=== PATIENT | male | born 1940 | race African-American/Black ===

== ENCOUNTER 2019-09-11 16:02 | Inpatient (IN) | payer MEDICARE ==
[~2019-09-11] VITALS: Ht 167.6 cm; Wt 141.5 kg
[2019-09-11 16:03] VITALS: BP 143/99
[2019-09-11] MEDS ORDERED: METFORMIN HCL500 M3 PO (16:18)
[2019-09-11 16:37] LABS: ABSOLUTE LYMPHOCYTES 1.1 thou/uL (0.8-5.3); ABSOLUTE MONOCYTES 0.6 thou/uL (0.0-1.2); ABSOLUTE NEUTROPHILS 4.6 thou/uL (1.6-8.1); BASOPHILS 0.5 %; EOSINOPHILS 0.5 %; HEMATOCRIT 38.2 % (42.0-52.0); HEMOGLOBIN 12.7 gm/dL (14.0-18.0); LYMPHOCYTES 17.1 %; MCH 29.2 pg (26.0-34.0); MCHC 33.2 g/dL (28.0-37.0); MCV 87.9 fL (80.0-100.0); MONOCYTES 9.6 %; MPV 10.4 fl. (7.2-11.1); NUCLEATED RBCS 0 /100WBC; PLATELET COUNT* 151 thou/uL (150-400); POLYS 72.3 %; RBC 4.35 mil/uL (4.50-6.00); RDW-CV 15.6 % (10.5-14.5); WBC 6.4 thou/uL (4.0-11.0)
[2019-09-11 16:48] LABS: CALCIUM 8.4 mg/dL (8.5-10.1); CREATININE 1.8 mg/dL (0.6-1.3)
[2019-09-11 16:49] LABS: APTT 28.9 Seconds (25.0-31.3); INR 1.2; PROTIME 12.5 Seconds (9.20-11.50)
[2019-09-11 16:51] LABS: POTASSIUM 2.7 mmol/L (3.5-5.1)
[2019-09-11 16:59] LABS: ALBUMIN 3.4 g/dL (3.4-5.0); TOTAL BILIRUBIN 0.8 mg/dL (<0.1-1.0); TOTAL PROTEIN 7.2 g/dL (6.4-8.2)
[2019-09-11 18:16] VITALS: BP 159/90
[2019-09-11 18:42] VITALS: BP 140/98
[2019-09-11 19:25] VITALS: BP 129/89
[2019-09-12] VITALS (12 sets, daily range): BP systolic 115–172; BP diastolic 65–102
[2019-09-12 04:19] LABS: HEMATOCRIT 38.3 % (42.0-52.0); HEMOGLOBIN 12.7 gm/dL (14.0-18.0); MCH 29.1 pg (26.0-34.0); MCHC 33.1 g/dL (28.0-37.0); MCV 87.9 fL (80.0-100.0); MPV 10.2 fl. (7.2-11.1); NUCLEATED RBCS 0 /100WBC; PLATELET COUNT* 142 thou/uL (150-400); RBC 4.36 mil/uL (4.50-6.00); RDW-CV 16.3 % (10.5-14.5); WBC 5.2 thou/uL (4.0-11.0)
[2019-09-12 04:49] LABS: CALCIUM 8.9 mg/dL (8.5-10.1); CREATININE 1.6 mg/dL (0.6-1.3); POTASSIUM 3.4 mmol/L (3.5-5.1); TROPONIN-I LEVEL 0.12 ng/mL (<0.06)
[2019-09-12 05:59] LABS: ABSOLUTE LYMPHOCYTES 0.3 thou/uL (0.8-5.3); ABSOLUTE MONOCYTES 0.1 thou/uL (0.0-1.2); ABSOLUTE NEUTROPHILS 4.9 thou/uL (1.6-8.1); HYPOCHROMASIA 1+; PLATELET ESTIMATE DECREASED; TARGET CELLS Occasional
[2019-09-12 06:00] LABS: ANISOCYTOSIS 1+; POIKILOCYTOSIS 1+
--- NOTE | 2019-09-12 08:29 | EKG ---
[place] [address] ELECTROCARDIOGRAM REPORT Name: GEORGIE DIEGOQUASH Zhou Room: [address] IN ..#: [id number] Admission: 09/11/19 Attend Phys: David Hale, Discharge: Date of : 40 Date of Service: 09/11/19 1610 Report #: [id number] THIS REPORT FOR: //name// [facility] ED Test Date: 2019-09-11 Test Time: 16:10:04 Pat Name: MARQUIS DIEGO Department: Room: [facility] Gender: M College Director: OLIVE : 1940 Requested By: Trey Armendariz Order Number: [id number] MD: Niels Cazares Measurements Intervals [place] Rate: 92 P: PA: QRS: 55 QRSD: 192 T: -29 QT: 434 QTc: 537 Interpretive Statements Atrial fibrillation Right bundle branch block No previous ECG available for comparison Electronically Signed On 09-12-2019 8:28:08 CDT by Niels Cazares [email or web address] <ELECTRONICALLY SIGNED> By: Niels Cazares MD, [facility] 09/12/19 0828 1610 1610 Niels Cazares MD, [facility] /EPI
[2019-09-12] MEDS ORDERED: ATENOLOL 50MG T50 MG PO (09:13)
[2019-09-12] MEDS ORDERED: PLAVIX 75 MG TA75 MG PO (09:15)
[2019-09-12] MEDS ORDERED: LISINOPRIL-HCT1 EACH PO (09:16)
[2019-09-12] MEDS ORDERED: SIMVASTATIN40 MG PO (09:17)
--- NOTE | 2019-09-12 12:55 | 2DMMODE ---
[place] [address] 2 D/M-MODE ECHOCARDIOGRAM Name: GEORGIE DIEGONANCY Zhou Room: [address] IN [facility]#: [id number] Admission: 09/11/19 Attend Phys: David Hale, Discharge: Date of : 40 Date of Service: 09/12/19 1253 Report #: [id number] THIS REPORT FOR: cc: FAM - No family physician/PCP FAM - No family physician/PCP Jamie Curry MD [facility] ~ APPROVED REPORT Study performed: 09/12/2019 10:17:48 EXAM: Comprehensive 2D, Doppler, and color-flow Echocardiogram Patient Location: In-Patient Room #: [facility] [place][note 2] Status: routine BSA: 2.16 HR: 90 bpm BP: 144/90 mmHg Rhythm: Atrial Fibrillation Other Information Study Quality: Fair Indications Congestive Heart Failure 2D Dimensions IVSd: 15.23 (7-11mm) LVOT Diam: 23.27 (18-24mm) LVDd: 61.24 mm PWd: 12.88 (7-11mm) Ascending Ao: 41.16 (22-36mm) LVDs: 39.02 (25-40mm) Aortic Root: 34.18 mm Volumes Left Atrial Volume (Systole) LA ESV Index: 44.60 mL/m2 Aortic Valve AoV Peak [place]oacano.: 1.22 m/s AO Peak Gr.: 5.92 mmHg LVOT Max P.73 mmHg AO Mean Gr.: 3.38 mmHg LVOT Mean P.36 mmHg LVOT Max V: 1.20 m/s AO V2 VTI: 20.07 cm LVOT Mean V: 0.69 m/s DOMINIC (VTI): 4.03 cm2 LVOT V1 VTI: 19.03 cm AI Long: 2.71 m/s2 [place] [address] 2 D/M-MODE ECHOCARDIOGRAM Name: MARQUIS Winnie DIEGO Room: [address] IN [facility]#: [id number] Admission: 09/11/19 Attend Phys: David Hale, Discharge: Date of : 40 Date of Service: 09/12/19 1253 Report #: [id number] AI PHT: 438.92 ms TDI Medial E' Michoacano.: 0.18 m/s Lateral E' [place]oacano.: 0.20 m/s Pulmonary Valve PV Peak Michoacano.: 1.03 m/s PV Peak Gr.: 4.24 mmHg Tricuspid Valve RAP Estimate: 5.00 mmHg TR Peak Gr.: 43.78 mmHg RVSP: 48.00 mmHg PA Pressure: 48.00 mmHg Left Ventricle The left ventricle is normal size. There is normal LV segmental wall motion. Mild concentric left ventricular hypertrophy. Left ventricular systolic function is borderline. LVEF is 45-50%. This study is not technically sufficient to allow evaluation of the LV diastolic function due to atrial fibrillation. Right Ventricle Right ventricle is dilated. The right ventricular systolic function is normal. Atria Left atrium is moderately dilated. Right atrium is dilated. Aortic Valve The aortic valve is normal in structure. Mild aortic regurgitation. There is no aortic valvular stenosis. Mitral Valve The mitral valve is normal in structure. Trace mitral regurgitation. No evidence of mitral valve stenosis. Tricuspid Valve The tricuspid valve is normal in structure. Mild tricuspid regurgitation. estimated pa pressure 55 mm Hg Pulmonic Valve The pulmonary valve is normal in structure. Mild pulmonic regurgitation. Great Vessels The aortic root is normal in size. IVC is [place] [address] 2 D/M-MODE ECHOCARDIOGRAM Name: BRANDIEMARQUIS Zhou Room: [address]#: [id number] Admission: 09/11/19 Attend Phys: David Hale, Discharge: Date of : 40 Date of Service: 09/12/19 1253 Report #: [id number] collapses >50% with inspiration. Pericardium There is no pericardial effusion. <Conclusion> Mild concentric left ventricular hypertrophy. LVEF is 45-50%. Right ventricle is dilated. Left atrium is moderately dilated. Mild aortic regurgitation. Mild tricuspid regurgitation. estimated pa pressure 55 mm Hg <ELECTRONICALLY SIGNED> By: Jamie Curry MD, [facility] 09/12/19 1253 1253 1253 Jamie Curry MD, FAC /INF
--- NOTE | 2019-09-12 13:19 | CARD ---
[address] [address] CARDIAC CATH REPORT Name: GEORGIE DIEGONANCY Zhou Room: [address] IN [facility]#: [id number] Admission: 09/11/19 Attend Phys: David Hale MD Discharge: Date of : 40 Report #: [id number] THIS REPORT FOR: //name// cc: REINALDO - No family physician/PCP REINALDO - No family physician/PCP ~ APPROVED REPORT Study performed: 09/12/2019 09:35:32 Patient Details Patient Status: In-Patient Room #: 203 The patient is a 79 year-old male Event Personnel Jamie Curry Marina Porter, Camila Walters RN Pharmacy Messenger , Reinaldo Baez RTR Monitor, Neida Fuchs RTR Scrub, Aroldo Eric RN Pharmacy Messenger, Kacie Olmedo RTR Monitor Procedures Performed Art Access - R radial artery , Art Access - R femoral artery, Left Heart Cath w/or w/o Coronaries LHC , Hemostasis w/ Mynx , Hemostasis with Hemoband Indication Abnormal ECG, Atrial fibrillation, Dyspnea, Atypical chest pain Risk Factors Arterial Hypertension, Hypercholesterolemia, Diabetes Admission/Lab Medications/Medications given during procedure Platelet Aff. Inhib., Nitroglycerin IA 600 mcg, Verapamil IA 7.5 mg Procedure Narrative The patient was brought electively to the Cardiac Catheterization Laboratory and was prepped and draped in a sterile manner. The right wrist and right femoral areas was infiltrated with 2% Lidocaine subcutaneous anesthesia. A 6F [place] sheath was inserted into the right femoral artery. Coronary angiography was performed using coronary diagnostic catheters. The right coronary system was accessed and visualized with a 6F JR4 catheter. The left coronary system was accessed and visualized with a 6F JL4 catheter. The left ventricle was accessed and visualized with a 6F Pigtail catheter. Left ventricular/Aortic Valve gradient assessed via catheter pullback. Left ventriculogram was performed in [place] [address] CARDIAC CATH REPORT Name: MARQUIS Winnie DIEGO Room: [address] IN [facility]#: [id number] Admission: 09/11/19 Attend Phys: David Hale MD Discharge: Date of : 40 Report #: [id number] was deployed with a 6 Fr Mynx. The patient tolerated the procedure well and there were no complications associated with the procedure. There was no hematoma. 6F Slender [place]ike sheath inserted into the right radial artery. A closure device was deployed with a 27 cm long Vasc Radial Band. Procedure was unable to be performed from right radial artery. Procedure performed via right femoral artery. Unable to advance catheter into ascending aorta because of tortuous aortic root. Intraoperative Conscious Sedation Sedation start time: 11:19 Case end Time: 12:02 Fentanyl 50 mcg Versed 2 mg Fluoro Time: 9.5 minutes Dose: DAP 124706 cGycm2 1647 mGy Contrast Type and Amount: Visipaque 60 ml Coronary Angiography The patient's coronary anatomy is right dominant. Sioux Artery Percent Stenosis Left Main: 0 % Prox LAD: 0 % Mid/Distal LAD: 50 % Circumflex: 50 % RCA: 40 % Ramus: % Left Ventriculography The left ventricular ejection fraction is estimated to be 40-45%. Left ventricular wall motion abnormalities are not present. There is 1+ mitral insufficiency. Hemodynamics The aortic pressure is 116/64 mmHg with a mean of 56 mmHg. The left ventricular pressure is 95/10 mmHg with a mean of mmHg. The left ventricular end diastolic pressure is 20 mmHg. There was no gradient across the aortic valve upon pullback. Pullback from the left ventricle to the aorta revealed no gradient across the aortic valve. Conclusion 1. no significant cad noted with a maximal stenosis of 50% in the mid LAD and mid circumflex artery. 2. Mild cardiomyopathy with EF 40-45% [place] [address] CARDIAC CATH REPORT Name: MARQUIS Winnie DIEGO Room: [address] IN [facility]#: [id number] Admission: 09/11/19 Attend Phys: David Hale MD Discharge: Date of : 40 Report #: [id number] Cardiac Rehabilitation Referral Aggressive Medical Therapy <ELECTRONICALLY SIGNED> By: Jamie Curry MD, [facility] 09/12/19 1317 1317 1317David Sandeep Curry MD, [facility] /INF
[2019-09-13] VITALS: BP 151/83
[2019-09-13 04:00] VITALS: BP 165/90
[2019-09-13 05:34] LABS: ABSOLUTE LYMPHOCYTES 0.7 thou/uL (0.8-5.3); ABSOLUTE MONOCYTES 0.7 thou/uL (0.0-1.2); ABSOLUTE NEUTROPHILS 5.2 thou/uL (1.6-8.1); BASOPHILS 0.5 %; EOSINOPHILS 0.4 %; HEMATOCRIT 35.7 % (42.0-52.0); HEMOGLOBIN 11.9 gm/dL (14.0-18.0); LYMPHOCYTES 10.6 %; MCH 29.4 pg (26.0-34.0); MCHC 33.2 g/dL (28.0-37.0); MCV 88.5 fL (80.0-100.0); MONOCYTES 10.4 %; MPV 10.2 fl. (7.2-11.1); NUCLEATED RBCS 0 /100WBC; PLATELET COUNT* 132 thou/uL (150-400); POLYS 78.1 %; RBC 4.03 mil/uL (4.50-6.00); RDW-CV 15.9 % (10.5-14.5); WBC 6.7 thou/uL (4.0-11.0)
[2019-09-13 05:46] LABS: ALBUMIN 3.1 g/dL (3.4-5.0); ALKALINE PHOSPHATASE 35 U/L (46-116); ANION GAP 7 mmol/L (7-16); BUN 24 mg/dL (7-18); CALCIUM 8.6 mg/dL (8.5-10.1); CHLORIDE 107 mmol/L (98-107); CHOLESTEROL 100 mg/dL (<200); CO2 34 mmol/L (21-32); CREATININE 1.6 mg/dL (0.6-1.3); GLUCOSE 99 mg/dL (70-99); HDL CHOLESTEROL 45 mg/dL (>40); LDL CHOLESTEROL 47 mg/dL (<100); POTASSIUM 3.5 mmol/L (3.5-5.1); SGOT 27 U/L (15-37); SGPT 27 U/L (30-65); SODIUM 148 mmol/L (136-145); TC:HDL 2.2 Ratio (Not establshd); TOTAL BILIRUBIN 0.9 mg/dL (<0.1-1.0); TOTAL PROTEIN 6.4 g/dL (6.4-8.2); TRIGLYCERIDE 42 mg/dL (<150); VLDL 8 mg/dL (<40)
[2019-09-13 05:47] LABS: SERUM ASSESSMENT CLEAR
[2019-09-13 07:00] VITALS: BP 153/95
--- NOTE | 2019-09-13 10:09 | CON ---
[address] [address] CONSULTATION Name: MARQUIS Winnie DIEGO Room: [address] IN .R.#: [id number] Admission: 09/11/19 Attend Phys: David Hale MD Discharge: Date of : 40 Report #: [id number] THIS REPORT FOR: //name// cc: REINALDO Marquez family physician/PCP REINALDO Marquez family physician/PCP ~ THIS REPORT FOR: //name// CC: David Hale [facility] physician/PCP CHRISTEL SLATER MD DATE OF SERVICE: 09/12/2019 CARDIOLOGY CONSULTATION HISTORY OF PRESENT ILLNESS: The patient is a 79-year-old single black male who I was asked to see in the hospital today after he was noted to be in atrial fibrillation. The history was obtained from the patient and the current chart. The patient has never been admitted here to [facility] in the past. He states he was doing well until a couple of days ago, he began to cough and felt short of breath. He felt somewhat tired and his heart beating irregular. He denied any syncope, chest tightness or peripheral edema. He went to see his primary care physician yesterday. He was found to be in atrial fibrillation. He was sent over to the Emergency Room and admitted. PAST MEDICAL HISTORY: He has had a hernia repair. He has a history of hypertension, diabetes. CURRENT MEDICATIONS: Consists of metformin. He does not know the rest of his medications. ALLERGIES: He has no known drug allergies. FAMILY HISTORY: His father had an enlarged heart. SOCIAL HISTORY: Single, never been . Used to work in a cafeteria. Currently lives in [place]. Quit smoking years ago. No alcohol abuse, no illicit drug use. REVIEW OF SYSTEMS: He has had no history of stroke, asthma, liver disease, kidney disease, cancer, psychiatric illness, chronic skin condition. PHYSICAL EXAMINATION: GENERAL: Revealed a large, elderly black male, lying in bed, appeared in no distress. VITAL SIGNS: Her blood pressure 140/90, pulse is 90 and irregular. He was [address], [place] [address] CONSULTATION Name: MARQUIS BRANDIE Winnie Room: [address]#: [id number] Admission: 09/11/19 Attend Phys: David Hale MD Discharge: Date of : 40 Report #: [id number] afebrile. HEENT: He was anicteric. Conjunctivae are pink. Mucous members moist. NECK: Veins do not appear distended. No carotid bruits. CHEST: Revealed crackles in both lung little. CARDIOVASCULAR: Irregular rhythm. No significant murmur. ABDOMEN: Obese. EXTREMITIES: Had trace edema. SKIN: Cool and dry. NEUROLOGIC: Nonfocal. RADIOLOGICAL DATA: His ECG on admission showed atrial fibrillation with a right bundle branch block. The patient did have an echocardiogram done in 2013 here at [facility] that showed ejection fraction of 50%, biatrial dilatation, dilated aortic root. The patient had a chest x-ray yesterday that showed cardiomegaly, mild interstitial edema. He had a CT scan of the chest that showed cardiomegaly, no pulmonary embolus, coronary artery calcification, renal cyst. LABORATORY DATA: Sodium 148, potassium 3.4, BUN 25, creatinine 1.6, glucose was 121. His liver function studies were normal. Troponin 0.12. BNP 10,700. White blood cell count 5.2, hemoglobin 12.7. IMPRESSION AND RECOMMENDATIONS: 1. Borderline troponins. Consider cardiac catheterization. 2. Atrial fibrillation. Rate controlled with beta-shaun. 3. Hypertension. The patient is on a beta-shaun, CHRISS inhibitor, diuretic. 4. Diabetes. The patient on metformin. 5. Hyperlipidemia. The patient is on a statin drug. 6. Pulmonary edema. Recommend echocardiogram. Consider Lasix. 7. Obesity. <ELECTRONICALLY SIGNED> By: Jamie Curry MD, FACC 09/13/19 1009 0912 1003Ddavid Curry MD, FACC /nt
[2019-09-13 12:37] VITALS: BP 129/76
--- NOTE | 2019-09-13 14:30 | EKG ---
[place] [address] ELECTROCARDIOGRAM REPORT Name: GEORGIE DIEGOQUIS Winnie Room: [address] IN .R.#: [id number] Admission: 09/11/19 Attend Phys: David Hale, Discharge: Date of : 40 Date of Service: 09/13/19 0816 Report #: [id number] THIS REPORT FOR: //name// [facility] Test Date: 2019-09-13 Test Time: 08:16:15 Pat Name: MARQUIS DIEGO Department: Room: [address] Gender: M Ref[employer]: : 1940 Requested By: Jamie Curry Order Number: [id number] Michelle MD: Jamie Curry Measurements Intervals [place] Rate: 94 P: 0 PA: 184 QRS: 56 QRSD: 188 T: -15 QT: 423 QTc: 530 Interpretive Statements atrial fibrillation Right bundle branch block Compared to ECG 09/11/2019 16:10:04 no change Electronically Signed On 09-13-2019 14:28:43 CDT by Jamie Curry [email or web address] <ELECTRONICALLY SIGNED> By: Jamie Curry MD, [facility] 09/13/19 1428 5 5 Jamie Curry MD, [facility] /EPI
[2019-09-13 16:12] VITALS: BP 128/72
[2019-09-13 19:40] VITALS: BP 178/67
[2019-09-14] VITALS: BP 133/77
[2019-09-14 04:00] VITALS: BP 153/81
[2019-09-14 05:11] LABS: CALCIUM 8.6 mg/dL (8.5-10.1); CREATININE 1.5 mg/dL (0.6-1.3); POTASSIUM 3.1 mmol/L (3.5-5.1)
[2019-09-14 08:00] VITALS: BP 126/90
[2019-09-14 12:02] VITALS: BP 128/77
[2019-09-14] MEDS ORDERED: SPIRONOLACTONE25 MG PO (13:58)
[2019-09-14] MEDS ORDERED: CARVEDILOL12.5 MG PO (14:01)
[2019-09-14] MEDS ORDERED: LASIX 40 MG TAB40 MG PO (15:29)
[2019-09-14] MEDS ORDERED: 8 HOUR650 MG PO (15:33)
[2019-09-14] MEDS ORDERED: XARELTO20 MG PO (15:34)
[2019-09-14] MEDS ORDERED: SPIRONOLACTONE25 M1 PO ×2 (15:39→15:44)
== END 2019-09-14 16:20 | disposition home or self-care (01) | DRG 280 ==
LOC: M.ERS 16:02 → M.TBA-ER 17:03 → M.2W 17:03
PROVIDERS: Family Medicine; Internal Medicine Cardiovascular Disease; ADMIT Internal Medicine
PROC: B2111ZZ Fluoroscopy of Multiple Coronary Arteries using Low Osmolar Contrast (ICD-10-PCS; principal; 2019-09-11)
PROC: 4A023N7 Measurement of Cardiac Sampling and Pressure, Left Heart, Percutaneous Approach (ICD-10-PCS; principal; 2019-09-11)
PROC: B2151ZZ Fluoroscopy of Left Heart using Low Osmolar Contrast (ICD-10-PCS; principal; 2019-09-11)
DX: I13.0 Hypertensive heart and chronic kidney disease with heart failure and stage 1 through stage 4 chronic kidney disease, or unspecified chronic kidney disease (principal); I21.4 Non-ST elevation (NSTEMI) myocardial infarction; I50.41 Acute combined systolic (congestive) and diastolic (congestive) heart failure; N17.0 Acute kidney failure with tubular necrosis; Z68.43 Body mass index [BMI] 50.0-59.9, adult; E11.22 Type 2 diabetes mellitus with diabetic chronic kidney disease; I48.91 Unspecified atrial fibrillation; R79.89 Other specified abnormal findings of blood chemistry; E87.6 Hypokalemia; E78.5 Hyperlipidemia, unspecified; E66.9 Obesity, unspecified; I27.21 Secondary pulmonary arterial hypertension; N18.3 Chronic kidney disease, stage 3 (moderate); Z79.01 Long term (current) use of anticoagulants; Z79.84 Long term (current) use of oral hypoglycemic drugs; Z79.899 Other long term (current) drug therapy